=== PATIENT | male | born 1965 | race Hispanic/Latino ===

== ENCOUNTER 2019-01-10 15:24 | Inpatient (IN) | payer SELFPAY ==
[~2019-01-10 15:24] MED LIST: ISOVUE-370 76%-LOCM 1 ML ONE
[2019-01-10 16:00] LABS: #Basophils 0.1 thou/uL (0.0-0.2); #Eosinphils 0.1 thou/uL (0.0-0.7); #Lymphocytes 1.6 thou/uL (1.20-3.40); #Monocytes 1.3 thou/uL (0.11-0.59); #Neutrophils 9.7 thou/uL (1.40-6.50); %Basophils 0.4 % (0.0-1.0); %Eosinophils 0.6 % (0.0-10.0); %Lymphocytes 12.3 % (21.0-51.0); %Monocytes 10.4 % (0.0-10.0); %Neutrophils 76.3 % (42.0-75.0); Hemoglobin 14.7 g/dL (14.0-18.0); Mean Corpuscular HGB CONC 34.3 g/dL (32.0-36.0); Mean Corpuscular Hemoglobin 29.7 pg (27.0-31.0); Mean Corpuscular Volume 86.7 fL (78.0-98.0); Mean Platelet Volume 7.1 fL (7.4-10.4); Platelet Count 292 thou/uL (130-400); RBC Distribution Width 10.9 % (11.5-14.5); Red Blood Cell (RBC) Count 4.94 mill/uL (4.70-6.10); White Blood Cell (WBC) Count 12.7 thou/uL (4.8-10.8)
[2019-01-10 16:02] LABS: Bilirubin Negative (Negative); Blood, Urine Negative (Negative); Clarity Clear (Clear); Glucose, Urine (Dipstick) Greater than 1000 mg/dL (Negative); Leukocyte Negative Leu/uL (Negative); Nitrite Negative (Negative); Protein, Urine (Dipstick) Negative (Neg-Trace); Urobilinogen Normal mg/dL (Less than 2)
[2019-01-10 16:22] LABS: ALT (SGPT) 15 U/L (8-55); AST (SGOT) 11 U/L (5-34); Albumin 4.4 g/dL (3.5-5.0); Alkaline Phosphatase 121 U/L (40-150); Anion Gap 13 mmol/L (10-20); BUN (Urea Nitrogen) 9 mg/dL (8.4-25.7); Bilirubin, Total 0.6 mg/dL (0.2-1.2); CK (CPK) 45 U/L (30-200); Calc. Creatinine Clearance 0 mL/min (70-130); Calcium 9.6 mg/dL (7.8-10.44); Carbon Dioxide 28 mmol/L (22-29); Chloride 95 mmol/L (98-107); Estimated GFR-MDRD Greater than 90; Globulin 3.9 g/dL (2.4-3.5); Glucose 351 mg/dL (70-105); Lipase 35 U/L (8-78); Potassium 3.9 mmol/L (3.5-5.1); Protein, Total 8.3 g/dL (6.0-8.3); Sodium 132 mmol/L (136-145)
[2019-01-10] MEDS ORDERED: Morphine 4 MG/ML VIAL ONE (17:13)
[2019-01-10] MEDS ORDERED: Aspirin Chewable 81 MG TAB ONE (17:14)
[2019-01-10] MEDS ORDERED: Ondansetron PF 4 MG/2 ML Vial ONE ×2 (17:14→19:40)
--- NOTE | 2019-01-10 17:31 | CT ---
CT ANGIOGRAM THORAX WITH CONTRAST: (CTA pulmonary angiogram) DATE: 01/10/2019 HISTORY: 53 year old male with chest pain and dyspnea TECHNIQUE: IV injection of iodinated contrast. Scan acquisition timing attempted to coincide with iodinated contrast bolus reaching maximal density in pulmonary arteries. 3-D MIP reconstructions. FINDINGS: In the right middle lobe abutting the anterior pleural surface, there is a 2.5 x 1.5 x 1.5 cm soft ti ssue density lesion. In the contralateral anterior segment of left upper lobe, abutting the left heart border, there is a similar appearing 2 x 2 x 1.5 center soft tissue density. Both of these have irregular margins. No pleural effusion or pneumothorax. Trachea and major bronchi are patent and clear. No thoracic aortic aneurysm or dissection. No pulmonary thromboembolism. No cardiomegaly or pericardial effusion. No hilar lymphadenopathy. There are several mildly enlarged noncalcified AP window lymph nodes, nonspeci fic. IMPRESSION: 1) bilateral soft tissue density lesions in the lungs, one in the right middle lobe and the other in the left upper lobe. These are favored to represent focal bilateral pneumonia. However, a follow-up CT of the chest is recommended (noncontrast) in one month to rule out the less likely possibility of malignant neoplasm. 2) no pulmonary thromboembolus.
--- NOTE | 2019-01-10 17:35 | RAD ---
RADIOGRAPH CHEST 2 VIEW: DATE: 01/10/2019 TIME: 5:11 PM HISTORY: 53-year-old male with chest pain and dyspnea COMPARISON: 03/04/2005 FINDINGS: Subtle new findings of 2 small focal irregularly-shaped noncalcified nodular densities on the order o f 2 cm in size each, one in the right middle lobe and the other in the anterior segment of left upper lobe. No pleural effusion, pneumothorax, or cardiomegaly. IMPRESSION: 2 pulmonary nodular lesions, one on each side. Pneumonia is favored, but follow-up chest CT is recomm ended in one month to rule out malignant neoplasm.
[2019-01-10] MEDS ORDERED: cefTRIAXone\\ROCEPHIN 2 GM VIAL ONE (18:12)
--- NOTE | 2019-01-10 18:55 | PDOC.FPRHP ---
- History of Present Illness Chief Complaint: R-sided chest pain and SOB History of Present Illness: 53 y/o M with a PMHx of HTN and DM II, presents to the ED with CP with coughing over the right chest and SOB present that started yesterday 01/09. Pt c/o of a dry cough, subjective fever, chills nad night sweats for the past week, and increased fatigues over the past X2 weeks. Pt also c/o diffuse joint and "bone pain," and right leg cramping. Pt had chest pain about X2 years ago, but it did not last like this episode. PT denies any N/V/D/Abd pain. Pt c/o BRAGG that was alleviated with rest. Pt states that X2 days ago he was laying tile and inhaled a lot of tile dust in the wind. 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 ED Course: Given IVF, ASA, Morphine, zofran, azithromycin, and rocephin in the ED. CTA chest, bilateral pulmonary densities, representing pneumonia, vs malignancy , recommend f/u in X1 month. No PE. - Allergies/Adverse Reactions Allergies Allergy/AdvReac Type Severity Reaction Status Date / Time No Known Allergies Allergy Verified 01/10/19 22:04 - Home Medications Medication Instructions Recorded Confirmed Type Atorvastatin Calcium [Lipitor] 10 mg PO HS 01/10/19 01/10/19 History Glucosam/Rachid-Msm1/C/Sergio/Bosw 1 each PO DAILY 01/10/19 01/10/19 History [Osteo Bi-Flex Caplet] Magnesium 400 mg PO DAILY 01/10/19 01/10/19 History metFORMIN HCl 500 mg PO BID-WM 01/10/19 01/10/19 History - History PMHx: DM II, for X6 months, HTN PSHx: none FHx: dad: RODRIGO, at age 80. Mom: Cancer and hepatitis Social: Works as a wood tile installer and does not use PPE/respirator while cutting stone, for X35 years. Denies tobacco or drug use. Quit drinking beer last week, X6 pack a day. - Review of Systems General: reports: fever/chills, night sweats, fatigue Eyes: denies: eye pain, vision changes ENT: denies: nasal congestion, rhinorrhea Respiratory: reports: cough, shortness of breath. denies: congestion Cardiovascular: reports: chest pain. denies: palpitation, edema Gastrointestinal: denies: nausea, vomiting, diarrhea, constipation, abdominal pain Genitourinary: denies: dysuria Skin: denies: rashes, lesions Musculoskeletal: reports: pain, tenderness, arthritis/arthralgias Neurological: reports: weakness. denies: numbness, syncope - Vital signs BP: 157/88 HR: 96 RR: 17 Tmax: 98.7 Pox: 95% on RA Wt: 64.127 kg - Physical Exam Constitutional: NAD, awake, alert and oriented, well developed HEENT: normocephalic and atraumatic, PERRLA, EOMI, conjunctiva clear, no scleral icterus, grossly normal vision, grossly normal hearing, MMM, oropharynx clear -HEENT: Pterygium over medial left eye. Neck: supple, FROM, trachea midline, no LAD, no JVD, no thyromegaly Chest: no-tender to palpation, no lesions Heart: RRR, normal S1/S2, no murmurs/rubs/gallops, pulses present, no edema Lungs: CTAB, no respiratory distress, good air movement, no rales/rhonchi, no wheezing, no retractions Abdomen: soft, non-tender, bowel sounds present, no masses/distention, no hernias Musculoskeletal: normal structure, normal tone, ROM grossly normal Neurological: no focal deficit, CN II-XII intact, normal sensation Skin: no rash/lesions, good turgor, capillary refill <2 seconds, no jaundice Heme/Lymphatic: no unusual bruising or bleeding, no purpura, no petechia Psychiatric: normal mood and affect, good judgment and insight, intact recent and remote memory FMR H&P: Results - Labs Result Diagrams: 01/10/19 15:53 01/10/19 15:53 Lab results: WBC 12.7 thou/uL (4.8-10.8) H 01/10/19 15:53 Hgb 14.7 g/dL (14.0-18.0) 01/10/19 15:53 Hct 42.8 % (42.0-52.0) 01/10/19 15:53 MCV 86.7 fL (78.0-98.0) 01/10/19 15:53 Plt Count 292 thou/uL (130-400) 01/10/19 15:53 Neutrophils % 76.3 % (42.0-75.0) H 01/10/19 15:53 Sodium 132 mmol/L (136-145) L 01/10/19 15:53 Potassium 3.9 mmol/L (3.5-5.1) 01/10/19 15:53 Chloride 95 mmol/L (98-107) L 01/10/19 15:53 Carbon Dioxide 28 mmol/L (22-29) 01/10/19 15:53 BUN 9 mg/dL (8.4-25.7) 01/10/19 15:53 Creatinine 0.84 mg/dL (0.7-1.3) 01/10/19 15:53 Glucose 351 mg/dL (70-105) H 01/10/19 15:53 Lactic Acid 1.2 mmol/L (0.5-2.2) 01/10/19 18:00 Calcium 9.6 mg/dL (7.8-10.44) 01/10/19 15:53 Total Bilirubin 0.6 mg/dL (0.2-1.2) 01/10/19 15:53 AST 11 U/L (5-34) 01/10/19 15:53 ALT 15 U/L (8-55) 01/10/19 15:53 Alkaline Phosphatase 121 U/L (40-150) 01/10/19 15:53 Creatine Kinase 45 U/L (30-200) 01/10/19 15:53 B-Natriuretic Peptide Less than 10.0 pg/mL (0-100) 01/10/19 15:53 Serum Total Protein 8.3 g/dL (6.0-8.3) 01/10/19 15:53 Albumin 4.4 g/dL (3.5-5.0) 01/10/19 15:53 Lipase 35 U/L (8-78) 01/10/19 15:53 Urine Ketones Negative mg/dL (Negative) 01/10/19 15:34 Urine Blood Negative (Negative) 01/10/19 15:34 Urine Nitrite Negative (Negative) 01/10/19 15:34 Ur Leukocyte Esterase Negative Brenda/uL (Negative) 01/10/19 15:34 - Radiology Interpretation CT scan - chest Status: report reviewed by me FMR H&P: A/P - Problem List (1) CAP (community acquired pneumonia) Current Visit: Yes Status: Acute Priority: High Code(s): J18.9 - PNEUMONIA , UNSPECIFIED ORGANISM (2) Sepsis Current Visit: Yes Status: Acute Code(s): A41.9 - SEPSIS, UNSPECIFIED ORGANISM Qualifiers: Sepsis type: sepsis due to unspecified organism - Plan Pt seen and evaluated by Dr. Tinoco who agrees with pt's care plan. 53 y/o male admitted to inpatient for evaluation and treatment of CAP and sepsis. 1. Community Acquired Pneumonia - Clinical and radiographic evidence of pneumonia - Ordered Azithromycin and Rocephin - Radiology recommended f/u chest CT in X1 month for possible malignant process in lungs. Consider workup for silicosis as pt's work hx puts him at high risk, or CA. - Bilateral 2. Sepsis 2/2 CAP - Continue IVF LR @120 ml/hr - Continue antibiotic therapy - Vitals Q4H 3. Hx of Chronic Essential HTN 4. DM II - SSI - accuchecks Disposition/LOS: Pt stable Admitted for evaluation and treatment of CAP and Sepsis. FMR H&P: Upper Level - Pertinent history 53 yo male presents for evaluation of chest pain with coughing and SOB. 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 Patient reports coughing with increased pain and that is why he came to be seen. Please see staff internist office based only note above for further information. General: Male appears stated age, NAD HEENT: Moist mucous membranes CV: Tachycardic rate and regular rhythm, no murmurs Respiratory: CTA-bilaterally Abdomen: Soft, nontender, no distention, Normoactive BS Extremities: Moving all four symmetrically, no edema Neuro: No focal deficits Psych: A&O x3. Responds appropriately. - Plan Date/Time: 01/10/191853 IAkira MD, have evaluated this patient and agree with findings/ plan as outlined by staff internist office based only resident. Pertinent changes/additions are listed here. 1. Sepsis secondary to Bilateral Pneumonia - Concern for malignant vs atypical process - Will treat empiric CAP - O2 supplementation as needed 2. DM2 - Continue metformin - Accuchecks and SSI - Likely will need increase in regimen - Consider evaluating HgbA1C 3. Previous alcohol abuse - Quit 3 weeks ago - ASE initiated PCP: [facility] CODE STATUS: FULL CODE Disposition: Stable, will admit to [facility] for management and treatment.
[2019-01-10] MEDS ORDERED: Azithromycin 500 MG VIAL ONE (19:16)
[2019-01-10] MEDS ORDERED: Dextrose 5% in Water 1,000 ML IV PRN (19:27)
[2019-01-10] MEDS ORDERED: Dextrose 50% Abboject 50 ML SYRINGE SLOW IVP PRN (19:27)
[2019-01-10] MEDS: Azithromycin 500 MG in Sodium Chloride 0.9% 250 ML 250 ML IVPB SCH (20:59)
[2019-01-10] MEDS: Lactated Ringer's 1,000 ML IV SCH (21:25)
[2019-01-10] MEDS: HumaLOG 300 UNITS/3 ML VIAL SC PRN (21:29)
[2019-01-10 21:49] VITALS: BMI 22.1
[2019-01-10] MEDS ORDERED: Acetaminophen 325 MG TAB PO SCH (22:15)
[2019-01-10] MEDS ORDERED: Insulin Regular 300 UNITS/3 ML VIAL SC SCH (22:30)
--- NOTE | 2019-01-10 22:39 | PDOC.EVN ---
Event Note - Event Note Event Note: Date/Time: 01/10/192238 I personally evaluated the patient and discussed the management with Dr. Salazar I agree with the History, Examination, Assessment and Plan documented above with any addition or exceptions noted below- 53 y/o M with h/o HTN, HLD and DM II presents with CP worse with coughing and deep inspiration over the right chest, non-productive cough and SOB present that started yesterday 01/09. Pt c/o subjective fever, chills and night sweats for the past week, and increased fatigue for the past X2 weeks. PT denies any N/V/D/Abd pain. Pt c/o BRAGG that was alleviated with rest. Denies any ill contacts. PMH/PSH/Meds/All reviewed and agree with resident's documentation. BP 130/81 P104 RR24 96%RA Exam repeated by me and agree with resident's findings. Labs: WBC=12.7, H/H=14.7/42.8 , Spp=969, Dr=332, K=3.9, Cl=95, CO2=28, BUN/Cr=9/0.84, Rslp=456. AST/ALT=11/15 , trop<0.010, procal=0.04, CXR- 2 nodular lesions irregular, noncalcified favoring pneumonia, CT angio- no evidence of PE; b/l soft tissue densities favoring focal b/l pneumonia. A/P: 1) B/l pneumonia - Admit to IMCU. Blood cultures drawn. Started on rocephin and zithromax. Will give trial of duoneb if feels better will continue. 2) Type 2 DM with hyperglycemia - IVF and start insulin. 3) HTN- resume home meds
[2019-01-11] MEDS: Lactated Ringer's 1,000 ML IV SCH ×3 (05:06→20:15)
[2019-01-11 05:12] LABS: #Basophils 0.1 thou/uL (0.0-0.2); #Eosinphils 0.1 thou/uL (0.0-0.7); #Lymphocytes 1.5 thou/uL (1.20-3.40); #Monocytes 1.1 thou/uL (0.11-0.59); #Neutrophils 8.4 thou/uL (1.40-6.50); %Basophils 0.5 % (0.0-1.0); %Eosinophils 0.6 % (0.0-10.0); %Lymphocytes 13.8 % (21.0-51.0); %Neutrophils 75.1 % (42.0-75.0); Hemoglobin 13.1 g/dL (14.0-18.0); Mean Corpuscular HGB CONC 33.6 g/dL (32.0-36.0); Mean Corpuscular Hemoglobin 29.4 pg (27.0-31.0); Mean Corpuscular Volume 87.5 fL (78.0-98.0); Mean Platelet Volume 7.2 fL (7.4-10.4); Platelet Count 260 thou/uL (130-400); Red Blood Cell (RBC) Count 4.46 mill/uL (4.70-6.10); White Blood Cell (WBC) Count 11.1 thou/uL (4.8-10.8)
[2019-01-11 05:15] LABS: Hemoglobin A1c 8.3 % (4.0-6.0)
[2019-01-11 05:31] LABS: Anion Gap 10 mmol/L (10-20); BUN (Urea Nitrogen) 6 mg/dL (8.4-25.7); Calc. Creatinine Clearance 115 mL/min (70-130); Calcium 8.8 mg/dL (7.8-10.44); Carbon Dioxide 28 mmol/L (22-29); Chloride 103 mmol/L (98-107); Estimated GFR-MDRD Greater than 90; Glucose 178 mg/dL (70-105); Potassium 3.7 mmol/L (3.5-5.1); Sodium 137 mmol/L (136-145)
[2019-01-11] MEDS: HumaLOG 300 UNITS/3 ML VIAL SC PRN ×2 (06:26→20:13)
[2019-01-11] MEDS ORDERED: [UNRECOGNIZED DRUG - OTHER] PO SCH (09:00)
--- NOTE | 2019-01-11 09:01 | PDOC.FM ---
- Subjective Subjective: pt resting comfortably in bed, reports chest pain is much improved. denies SOB - Objective Vital Signs & Weight: Vital Signs (12 hours) Temp Pulse Resp BP Pulse Ox 01/11/19 08:00 99.9 F H 123/77 01/11/19 04:00 102/67 01/11/19 03:40 98.6 F 01/11/19 00:00 103/56 L 01/10/19 23:46 99.3 F 01/10/19 23:00 64 16 94 L Weight Weight 62.737 kg Most Recent Monitor Data Heart Rate from ECG 91 NIBP 123/77 NIBP BP-Mean 92 Respiration from ECG 18 SpO2 95 I&O: 01/10/19 01/11/19 01/12/19 06:59 06:59 06:59 Intake Total 1602 Output Total 1999 Balance -398 Result Diagrams: 01/11/19 04:48 01/11/19 04:48 Phys Exam - Physical Examination Constitutional: NAD HEENT: moist MMs Neck: full ROM Respiratory: clear to auscultation bilateral Cardiovascular: RRR, no significant murmur Gastrointestinal: non-tender, no distention Musculoskeletal: no edema, pulses present Neurological: moves all 4 limbs Lymphatic: no nodes Psychiatric: normal affect Skin: no rash Dx/Plan (1) DMII (diabetes mellitus, type 2) Status: Acute (2) CAP (community acquired pneumonia) Code(s): J18.9 - PNEUMONIA, UNSPECIFIED ORGANISM Status: Acute (3) Sepsis Code(s): A41.9 - SEPSIS, UNSPECIFIED ORGANISM Status: Acute Qualifiers: Sepsis type: sepsis due to unspecified organism - Plan Plan: Sepsis secondary to Bilateral Pneumonia - Concern for malignant vs atypical process - Will treat empiric CAP, transition to oral abx - vss, no O2 requirement, stable to trfx to floor - pulmonology consulted appreciate recs - repeat CT scan non-con in one month 2. DM2 - Continue metformin - Accuchecks and SSI - Likely will need increase in regimen 3. Previous alcohol abuse - Quit 3 weeks ago - ASE initiated PCP: [facility] CODE STATUS: FULL CODE Disposition: Stable, txfr to floor, transition to oral abx, possible DC tomorrow Addendum - Attending - Attending Attestation Date/Time: 01/11/19 3772 I personally evaluated the patient and discussed the management with Dr. Calderon. I agree with and repeated the History, Examination, Assessment and Plan documented above with any addition or exceptions noted below. Will tx empirically as PNA; TTE per Dr. Monroe; nebs as cough has improved. Xfer out of IMCU today.
[2019-01-11] MEDS: Magnesium Oxide 400 MG TAB PO SCH (09:30)
[2019-01-11] MEDS: metFORMIN 500 MG TAB PO SCH ×2 (09:30→16:54)
--- NOTE | 2019-01-11 13:12 | CON ---
DATE OF CONSULTATION: HISTORY OF PRESENT ILLNESS: Smith Vance is a 53-year-old gentleman without any prior history of TB, pneumonia, or asthma, presented with right-sided chest pain and a cough, but no fever, no chills. X-ray showed bilateral infiltrates. CAT scan showed pulmonary infiltrates with a questionable cavitation in the left lung. This morning, he said he is feeling better. The patient has been relatively healthy. In fact, he has not been in the hospital for many years. PAST MEDICAL HISTORY: Diabetes and high cholesterol. PAST SURGICAL HISTORY: None. CHRONIC MEDICATIONS: 1. Metformin 500 twice a day. 2. Magnesium. 3. Lipitor 10. ALLERGIES: NONE. SOCIAL HISTORY: He does oneil. Drinks six beers regularly. Denies being intoxicated. Denies any aspiration. REVIEW OF SYSTEMS: Negative. PHYSICAL EXAMINATION: VITAL SIGNS: Temperature 99, blood pressure 120/77, saturations are 98% on room air, and respiratory rate 18. CHEST: No wheezing, minimal crackles. CARDIAC: Normal S1 and S2. No gallops. ABDOMEN: No masses. LABORATORY DATA: White count 11,000. Lytes are normal. Blood sugar is 185. IMPRESSION AND PLAN: 1. Bilateral pulmonary infiltrates and nonsmoker. 2. Diabetes. Echo is being ordered to rule out any obvious vegetation. I agree with present antibiotics. Remains afebrile, switch him over to oral antibiotics tomorrow. We will follow. Consultation note, 70 minutes, 50% direct patient care. Job ID: [id number]
[2019-01-11] MEDS ORDERED: cefTRIAXone\\ROCEPHIN 1 GM in Sodium Chloride 0.9% 100 ML IVPB SCH (18:00)
[2019-01-11] MEDS: Azithromycin 500 MG in Sodium Chloride 0.9% 250 ML 250 ML IVPB SCH (20:05)
[2019-01-11] MEDS ORDERED: Atorvastatin Calcium 10 MG TAB PO SCH (21:00)
[2019-01-12] MEDS: HumaLOG 300 UNITS/3 ML VIAL SC PRN (05:26)
[2019-01-12] MEDS: Lactated Ringer's 1,000 ML IV SCH (05:27)
[2019-01-12] MEDS: Magnesium Oxide 400 MG TAB PO SCH (07:57)
[2019-01-12] MEDS: metFORMIN 500 MG TAB PO SCH (07:57)
--- NOTE | 2019-01-12 08:35 | PDOC.FM ---
- Subjective Subjective: pt resting comfortably in bed, reports improved cough, denies SOB/chest pain - Objective Vital Signs & Weight: Vital Signs (12 hours) Temp Pulse Resp BP BP Pulse Ox 01/12/19 07:53 98 F 83 18 106/73 96 01/12/19 04:00 98.6 F 70 16 117/71 117/71 95 Weight Weight 62.737 kg Most Recent Monitor Data Heart Rate from ECG 93 NIBP 128/74 NIBP BP-Mean 92 Respiration from ECG 22 SpO2 95 I&O: 01/11/19 01/12/19 01/13/19 06:59 06:59 06:59 Intake Total 1602 1920 Output Total 1999 Balance -398 1920 Result Diagrams: 01/11/19 04:48 01/11/19 04:48 Phys Exam - Physical Examination Constitutional: NAD HEENT: moist MMs Neck: no JVD Respiratory: clear to auscultation bilateral Cardiovascular: RRR, no significant murmur Gastrointestinal: no distention Musculoskeletal: no edema, pulses present Neurological: moves all 4 limbs Skin: no rash Dx/Plan (1) DMII (diabetes mellitus, type 2) Status: Acute (2) CAP (community acquired pneumonia) Code(s): J18.9 - PNEUMONIA, UNSPECIFIED ORGANISM Status: Acute (3) Sepsis Code(s): A41.9 - SEPSIS, UNSPECIFIED ORGANISM Status: Acute Qualifiers: Sepsis type: sepsis due to unspecified organism - Plan Plan: Sepsis secondary to Bilateral Pneumonia - Concern for malignant vs atypical process - treat empiric CAP, transition to oral abx - vss, no O2 requirement - pulmonology consulted appreciate recs - repeat CT scan non-con in one month DM2 - Continue metformin - Accuchecks and SSI - Likely will need increase in regimen Previous alcohol abuse - Quit 3 weeks ago - dc ase protocol PCP: [facility] CODE STATUS: FULL CODE Disposition:transition to oral abx, possible DC today or tomorrow Addendum - Attending - Attending Attestation Date/Time: 01/12/19 1027 I personally evaluated the patient and discussed the management with Dr. Calderon. I agree with and repeated the History, Examination, Assessment and Plan documented above with any addition or exceptions noted below. Coughing but unremarkable exam and he says he feels great. Denies f/c/n/v/cp, no sob. continue IV AB pending TTE results. He will need f/u with pulm for PFTs following resolution and potentially for reimaging. He also needs a PCP. I have explained this to him and he voices understanding.
[2019-01-12] MEDS ORDERED: Azithromycin 250 MG TAB PO SCH (09:00)
--- NOTE | 2019-01-12 09:53 | PRG ---
DATE OF SERVICE: 01/12/2019 SUBJECTIVE: He is better. His pleuritic chest pain resolved. OBJECTIVE: VITAL SIGNS: Temperature 98, pulse 83, saturations are 98% on room air, and blood pressure 106/73. CHEST: No wheezing, crackles. CARDIAC: Normal S1 and S2. No gallop. ABDOMEN: No mass. IMPRESSION: 1. Bilateral pulmonary nodular infiltrates. 2. Right pleuritic pleural base central cavitation. PLAN: Await echo results. If cultures negative and remains afebrile, may switch over to oral antibiotics, doxycycline for about a week. Follow up with a chest x-ray to make sure the infiltrate is resolved. Job ID: [id number]
[2019-01-12 11:53] VITALS: BP 126/84; TEMP 98.5
--- NOTE | 2019-01-13 03:20 | DIS ---
DATE OF ADMISSION: 01/10/2019 DATE OF DISCHARGE: 01/12/2019 ADMITTING ATTENDING: Bri Tinoco MD CONSULTS: Pulmonology, Fredo Brett Monroe MD. RESIDENT: Gene Calderon DO PROCEDURES PERFORMED: None. IMAGING: Chest x-ray significant for bilateral pulmonary infiltrates. Chest CT significant for bilateral soft tissue density lesions of the lungs, one in the right middle lobe and the other in the left upper lobe. These are favored to represent focal bilateral pneumonia. However, a followup CT of the chest is recommended noncontrast in one month to rule out less likely possibility of malignant neoplasm. Echocardiogram revealed a ventricular ejection fraction visually estimated at 50% to 55%. The rest being normal. No vegetations reported. DISCHARGE MEDICATIONS: 1. Magnesium 400 mg p.o. daily. 2. Glucosamine 1 each p.o. daily. 3. Lipitor 10 mg p.o. at bedtime. 4. Metformin 500 mg p.o. b.i.d. with meals. 5. Proventil 2 puffs inhaled q.6 hours p.r.n. 6. Doxycycline 100 mg p.o. b.i.d. for 7 days. DISCHARGE DIAGNOSIS: Sepsis secondary to bilateral pneumonia. SECONDARY DIAGNOSES: 1. Diabetes mellitus type 2. 2. Previous alcohol abuse. HISTORY OF PRESENT ILLNESS AND HOSPITAL COURSE: Mr. Vance is a 53-year-old male with past medical history significant for hypertension, diabetes mellitus, presented to the emergency department with chest pain and coughing over the right chest and shortness of breath that started the day prior to admission. He reports dry cough, subjective fever, chills, night sweats for the past week, and increased fatigue for the past two weeks with associated with bone pain. During evaluation in the emergency department, he was found to have bilateral pulmonary infiltrates. He was started on azithromycin and Rocephin. IMCU admission necessary per protocol for bilateral pneumonia. The patient did not have oxygen requirement and vital signs remained stable throughout hospitalization, treated with IV antibiotics. Pulmonology was consulted and recommended echocardiogram, which was completed to rule out endocarditis. The patient improved throughout hospital stay, reported pain and cough to be much improved. Denied shortness of breath. Deemed stable for discharge. Important followup being in one month. A CT noncontrast of the chest to be completed along with pulmonary function testing for possible asthma versus COPD from prior dust related exposures. Will be sent home on albuterol inhaler to be used until this time. Recommend not to be exposed to heat for the next 2 weeks. DISCHARGE INSTRUCTIONS: 1. Location: Home. 2. Diet: Diabetic. 3. Activity: As tolerated. 4. Followup: Follow up with new PCP in 7 days and Pulmonology in 3-4 weeks. Job ID: [id number]
== END 2019-01-12 17:06 | disposition home or self-care (01) | DRG 871 ==
LOC: ERS 15:24 → IMCU/EMU 17:45 → T4-A 01-11 16:35
PROVIDERS: ADMIT Family Medicine; ATTEND Family Medicine
DX: A41.9 Sepsis, unspecified organism (principal); J18.9 Pneumonia, unspecified organism; E11.65 Type 2 diabetes mellitus with hyperglycemia; I10 Essential (primary) hypertension; Z79.84 Long term (current) use of oral hypoglycemic drugs; Z79.899 Other long term (current) drug therapy
CPT/HCPCS: 36415; 36416; 71046; 71275; 80048; 80053; 81003; 82550; 83036; 83605; 83690; 83880; 84145; 84484; 85025; 86480; 87040; 93005; 93306; 94640; 96365; 96367; 96375; J0456; J0696; J1815; J2270; J2405; J3490; J7050; J7620; Q9966

== ENCOUNTER 2021-02-16 14:01 | Emergency (ER) | payer OTHER ==
[2021-02-16] MEDS ORDERED: Ketorolac Tromethamine 30 MG/ML VIAL ONE (17:24)
== END 2021-02-16 18:20 | disposition home or self-care (01) ==
LOC: ERS 14:01
DX: S50.02XA Contusion of left elbow, initial encounter (principal); M54.9 Dorsalgia, unspecified; E11.9 Type 2 diabetes mellitus without complications; I10 Essential (primary) hypertension; V49.40XA Driver injured in collision with unspecified motor vehicles in traffic accident, initial encounter; Z79.84 Long term (current) use of oral hypoglycemic drugs; Z79.899 Other long term (current) drug therapy
CPT/HCPCS: 96372; J1885

== ENCOUNTER 2021-06-02 14:28 | Inpatient (IN) | payer OTHER, SELFPAY ==
[~2021-06-02 14:28] MED LIST changes: -ISOVUE-370 76%-LOCM 1 ML ONE; +Iopamidol 370 76% 100 ML VIAL ONE; +Iopamidol 370 76% 50 ML VIAL FS ONE
[2021-06-02] MEDS ORDERED: Heparin 10,000 UNITS/ 10 ML VIAL ONE ×2 (14:37→14:40)
[2021-06-02] MEDS ORDERED: Fentanyl 100 MCG/2 ML VIAL ONE ×3 (14:37→22:20)
[2021-06-02] MEDS ORDERED: Midazolam HCl 2 mg/2 ml Vial ONE (14:37)
[2021-06-02] MEDS ORDERED: Nitroglycerin 100MG/250ML BOT 250 ML ONE (14:38)
[2021-06-02] MEDS ORDERED: Lidocaine 1% (PF) 30 ML VIAL ONE (14:38)
[2021-06-02] MEDS ORDERED: Heparin 25,000 units/D5W 0 ML ONE (14:40)
[2021-06-02 14:52] LABS: #Basophils 0.1 thou/uL (0.0-0.2); #Eosinphils 0.2 thou/uL (0.0-0.7); #Lymphocytes 2.4 thou/uL (1.20-3.40); #Monocytes 1.2 thou/uL (0.11-0.59); #Neutrophils 5.6 thou/uL (1.40-6.50); %Basophils 1.5 % (0.0-1.0); %Eosinophils 1.6 % (0.0-10.0); %Lymphocytes 25.3 % (21.0-51.0); %Monocytes 13.1 % (0.0-10.0); %Neutrophils 58.5 % (42.0-75.0); Hemoglobin 13.6 g/dL (14.0-18.0); Mean Corpuscular HGB CONC 33.6 g/dL (32.0-36.0); Mean Corpuscular Hemoglobin 30.3 pg (27.0-31.0); Mean Corpuscular Volume 90.3 fL (78.0-98.0); Mean Platelet Volume 7.3 fL (7.4-10.4); Platelet Count 294 thou/uL (130-400); RBC Distribution Width 11.2 % (11.5-14.5); Red Blood Cell (RBC) Count 4.48 mill/uL (4.70-6.10); White Blood Cell (WBC) Count 9.5 thou/uL (4.8-10.8)
[2021-06-02 15:07] LABS: Prothrombin Time 13.5 sec (12.0-14.7)
[2021-06-02 15:15] LABS: ALT (SGPT) 18 U/L (8-55); AST (SGOT) 16 U/L (5-34); Alkaline Phosphatase 95 U/L (40-110); Anion Gap 17 mmol/L (10-20); BUN (Urea Nitrogen) 13 mg/dL (8.4-25.7); Bilirubin, Total 0.6 mg/dL (0.2-1.2); CK (CPK) 115 U/L (30-200); Calc. Creatinine Clearance 0 mL/min (70-130); Carbon Dioxide 23 mmol/L (22-29); Chloride 99 mmol/L (98-107); Globulin 3.1 g/dL (2.4-3.5); Glucose 323 mg/dL (70-105); Potassium 3.6 mmol/L (3.5-5.1); Protein, Total 7.1 g/dL (6.0-8.3); Sodium 135 mmol/L (136-145)
[2021-06-02] MEDS ORDERED: Atropine Sulfate 1 mg/10 ml Syringe ONE (15:20)
[2021-06-02] MEDS ORDERED: Ondansetron PF 4 MG/2 ML Vial ONE (15:20)
[2021-06-02] MEDS ORDERED: Clopidogrel Bisulfate 300 MG TAB ONE (15:25)
[2021-06-02 15:31] LABS: CKMB 3.7 ng/mL (0-6.6)
[2021-06-02] MEDS ORDERED: Adenosine 6 MG/2 ML VIAL ONE (15:46)
[2021-06-02] MEDS ORDERED: TICAGRELOR 90 MG TABLET ONE (16:02)
[2021-06-02] MEDS ORDERED: Insulin Regular 300 UNITS/3 ML VIAL ONE (17:00)
[2021-06-02 17:39] LABS: INR-International Normal Ratio 1.1; Prothrombin Time 14.8 sec (12.0-14.7)
[2021-06-02 18:16] LABS: PTT Greater than 250.0 sec (22.9-36.1)
[2021-06-02] MEDS ORDERED: Dextrose 5% in Water 1,000 ML IV PRN (19:30)
[2021-06-02] MEDS ORDERED: Sodium Chloride 0.9% 1,000 ML IV SCH (19:30)
[2021-06-02] MEDS ORDERED: Dextrose 50% Abboject 50 ML SYRINGE IVP PRN (19:30)
[2021-06-02] MEDS: Insulin Regular 300 UNITS/3 ML VIAL SC PRN (20:23)
[2021-06-02] MEDS ORDERED: Fentanyl 100 MCG/2 ML VIAL SLOW IVP PRN (20:50)
[2021-06-02] MEDS ORDERED: Fentanyl 100 MCG/2 ML VIAL SLOW IVP SCH (21:00)
[2021-06-03] MEDS ORDERED: Carvedilol 3.125 MG TAB ONE (00:02)
[2021-06-03] MEDS ORDERED: TICAGRELOR 90 MG TABLET ONE (00:02)
[2021-06-03] MEDS: Carvedilol 3.125 MG TAB PO SCH ×3 (00:07→21:01)
[2021-06-03] MEDS: TICAGRELOR 90 MG TABLET PO SCH ×3 (00:07→21:01)
[2021-06-03 03:29] LABS: #Eosinphils 0.1 thou/uL (0.0-0.7); #Lymphocytes 0.9 thou/uL (1.20-3.40); #Neutrophils 7.4 thou/uL (1.40-6.50); %Basophils 0.4 % (0.0-1.0); %Eosinophils 0.9 % (0.0-10.0); %Lymphocytes 9.5 % (21.0-51.0); %Monocytes 10.2 % (0.0-10.0); Hemoglobin 13.9 g/dL (14.0-18.0); Mean Corpuscular HGB CONC 33.5 g/dL (32.0-36.0); Mean Corpuscular Hemoglobin 30.4 pg (27.0-31.0); Mean Corpuscular Volume 90.9 fL (78.0-98.0); Mean Platelet Volume 7.5 fL (7.4-10.4); Platelet Count 221 thou/uL (130-400); RBC Distribution Width 11.5 % (11.5-14.5); Red Blood Cell (RBC) Count 4.57 mill/uL (4.70-6.10); White Blood Cell (WBC) Count 9.4 thou/uL (4.8-10.8)
[2021-06-03] MEDS ORDERED: Sodium Chloride 0.9% 1,000 ML IV SCH (03:30)
[2021-06-03 03:32] VITALS: BMI 21.8
[2021-06-03 03:55] LABS: ALT (SGPT) 17 U/L (8-55); AST (SGOT) 36 U/L (5-34); Albumin 3.7 g/dL (3.5-5.0); Alkaline Phosphatase 90 U/L (40-110); Anion Gap 14 mmol/L (10-20); BUN (Urea Nitrogen) 9 mg/dL (8.4-25.7); Bilirubin, Total 0.6 mg/dL (0.2-1.2); Calc. Creatinine Clearance 99 mL/min (70-130); Calcium 8.5 mg/dL (7.8-10.44); Carbon Dioxide 21 mmol/L (22-29); Chloride 105 mmol/L (98-107); Globulin 2.8 g/dL (2.4-3.5); Glucose 320 mg/dL (70-105); Potassium 3.7 mmol/L (3.5-5.1); Protein, Total 6.5 g/dL (6.0-8.3); Sodium 136 mmol/L (136-145)
[2021-06-03 04:13] LABS: Troponin I 4.678 ng/mL (< 0.028)
[2021-06-03] MEDS: Insulin Regular 300 UNITS/3 ML VIAL SC PRN ×4 (06:43→21:08)
[2021-06-03] MEDS: Aspirin Chewable 81 MG TAB PO SCH (07:59)
[2021-06-03] MEDS ORDERED: Lisinopril 2.5 MG TAB PO SCH (09:00)
[2021-06-03] MEDS ORDERED: Furosemide 40 MG/4 ML VIAL ONE (09:13)
[2021-06-03] MEDS ORDERED: Furosemide 20 MG/2 ML VIAL SLOW IVP SCH ×2 (09:15→18:00)
[2021-06-03] MEDS ORDERED: Famotidine 20 MG TAB PO SCH (09:30)
[2021-06-03] MEDS ORDERED: Potassium Chloride 20 MEQ TAB PO SCH ×2 (09:30→18:00)
[2021-06-03 10:59] LABS: Cardiac Risk 3.5 (Less than 4.5)
[2021-06-03 11:10] LABS: Critical Call Chem Troponin I RESULT DECREASING; Troponin I 2.877 ng/mL (< 0.028)
[2021-06-03 15:13] LABS: SARS-CoV-2 PCR by NAA Not Detected (NotDetected)
[2021-06-03] MEDS ORDERED: Spironolactone 25 MG TAB PO SCH (18:00)
[2021-06-03] MEDS: Lisinopril 2.5 MG TAB PO SCH (20:58)
[2021-06-03] MEDS: Famotidine 20 MG TAB PO SCH (21:00)
[2021-06-03] MEDS: Rosuvastatin 20 MG TAB PO SCH (21:01)
[2021-06-04 04:18] LABS: Anion Gap 17 mmol/L (10-20); BUN (Urea Nitrogen) 12 mg/dL (8.4-25.7); Calc. Creatinine Clearance 91 mL/min (70-130); Calcium 9.5 mg/dL (7.8-10.44); Carbon Dioxide 24 mmol/L (22-29); Chloride 99 mmol/L (98-107); Glucose 228 mg/dL (70-105); Potassium 3.7 mmol/L (3.5-5.1); Sodium 136 mmol/L (136-145)
[2021-06-04] MEDS: Insulin Regular 300 UNITS/3 ML VIAL SC PRN ×4 (06:26→20:37)
[2021-06-04] MEDS: Aspirin Chewable 81 MG TAB PO SCH (08:22)
[2021-06-04] MEDS: Spironolactone 25 MG TAB PO SCH (08:22)
[2021-06-04] MEDS: Famotidine 20 MG TAB PO SCH ×2 (08:22→20:34)
[2021-06-04] MEDS: Carvedilol 3.125 MG TAB PO SCH ×2 (08:22→20:34)
[2021-06-04] MEDS: Lisinopril 2.5 MG TAB PO SCH ×2 (08:22→20:35)
[2021-06-04] MEDS: Potassium Chloride 20 MEQ TAB PO SCH (08:22)
[2021-06-04] MEDS: TICAGRELOR 90 MG TABLET PO SCH ×2 (08:27→20:36)
[2021-06-04] MEDS: Rosuvastatin 20 MG TAB PO SCH (20:35)
[2021-06-04 20:40] VITALS: BP 113/87
[2021-06-05 04:41] LABS: Anion Gap 14 mmol/L (10-20); BUN (Urea Nitrogen) 14 mg/dL (8.4-25.7); Calc. Creatinine Clearance 82 mL/min (70-130); Calcium 9.3 mg/dL (7.8-10.44); Carbon Dioxide 24 mmol/L (22-29); Chloride 100 mmol/L (98-107); Glucose 258 mg/dL (70-105); Potassium 3.8 mmol/L (3.5-5.1); Sodium 134 mmol/L (136-145)
[2021-06-05] MEDS: Insulin Regular 300 UNITS/3 ML VIAL SC PRN (04:52)
[2021-06-05] MEDS: Famotidine 20 MG TAB PO SCH (09:23)
[2021-06-05] MEDS: Aspirin Chewable 81 MG TAB PO SCH (09:23)
[2021-06-05] MEDS: Potassium Chloride 20 MEQ TAB PO SCH (09:24)
[2021-06-05] MEDS: TICAGRELOR 90 MG TABLET PO SCH (09:25)
[2021-06-05] MEDS: Spironolactone 25 MG TAB PO SCH (09:25)
[2021-06-05] MEDS: Lisinopril 2.5 MG TAB PO SCH (09:25)
[2021-06-05] MEDS: Carvedilol 3.125 MG TAB PO SCH (09:26)
[2021-06-05] MEDS ORDERED: Clopidogrel Bisulfate 300 MG TAB PO SCH (10:30)
[2021-06-05 13:41] VITALS: TEMP 97.9
[2021-06-05] MEDS ORDERED: metFORMIN 500 MG TAB PO SCH (17:00)
[2021-06-06] MEDS ORDERED: metFORMIN 500 MG TAB PO SCH (08:00)
[2021-06-06] MEDS ORDERED: Clopidogrel Bisulfate 75 MG TAB PO SCH (09:00)
== END 2021-06-05 14:15 | disposition home or self-care (01) | DRG 247 ==
LOC: ERS 14:28 → CCL 14:47 → CCU 06-03 03:07
PROVIDERS: ADMIT Internal Medicine Cardiovascular Disease; ATTEND Internal Medicine Cardiovascular Disease
PROC: 027034Z Dilation of Coronary Artery, One Artery with Drug-eluting Intraluminal Device, Percutaneous Approach (ICD-10-PCS; principal; 2021-06-02)
PROC: 4A023N7 Measurement of Cardiac Sampling and Pressure, Left Heart, Percutaneous Approach (ICD-10-PCS; 2021-06-02)
PROC: B2111ZZ Fluoroscopy of Multiple Coronary Arteries using Low Osmolar Contrast (ICD-10-PCS; 2021-06-02)
DX: I21.19 ST elevation (STEMI) myocardial infarction involving other coronary artery of inferior wall (principal); E11.9 Type 2 diabetes mellitus without complications; I25.10 Atherosclerotic heart disease of native coronary artery without angina pectoris; Z20.822 Contact with and (suspected) exposure to COVID-19; I95.9 Hypotension, unspecified; R00.1 Bradycardia, unspecified; E78.00 Pure hypercholesterolemia, unspecified; I50.9 Heart failure, unspecified; I11.0 Hypertensive heart disease with heart failure
CPT/HCPCS: 36415; 36416; 71045; 80048; 80053; 80061; 82550; 82553; 83880; 84484; 85025; 85347; 85610; 85730; 86850; 86900; 86901; 92941; 93005; 93010; 93458; 93798; 94760; 97139; 99152; 99153; C1769; C1874; C9606; J0153; J0461; J1644; J1815; J1940; J2001; J2250; J2405; J3010; J7050; Q9967; U0003; U0005

== ENCOUNTER 2021-08-13 14:08 | Observation (INO) | payer OTHER, SELFPAY ==
[~2021-08-13 14:08] MED LIST changes: -Iopamidol 370 76% 100 ML VIAL ONE; -Iopamidol 370 76% 50 ML VIAL FS ONE; +Iopamidol-370 76% 500 ML 1 ML ONE
[2021-08-13 15:18] LABS: #Eosinphils 0.1 thou/uL (0.0-0.7); #Lymphocytes 1.3 thou/uL (1.20-3.40); #Monocytes 0.8 thou/uL (0.11-0.59); #Neutrophils 5.5 thou/uL (1.40-6.50); %Basophils 0.6 % (0.0-1.0); %Eosinophils 1.7 % (0.0-10.0); %Lymphocytes 16.4 % (21.0-51.0); %Monocytes 10.2 % (0.0-10.0); Hemoglobin 13.7 g/dL (14.0-18.0); Mean Corpuscular HGB CONC 34.1 g/dL (32.0-36.0); Mean Corpuscular Hemoglobin 31.3 pg (27.0-31.0); Mean Corpuscular Volume 91.9 fL (78.0-98.0); Mean Platelet Volume 6.8 fL (7.4-10.4); Platelet Count 274 thou/uL (130-400); RBC Distribution Width 11.5 % (11.5-14.5); Red Blood Cell (RBC) Count 4.37 mill/uL (4.70-6.10); White Blood Cell (WBC) Count 7.7 thou/uL (4.8-10.8)
[2021-08-13] MEDS ORDERED: Nitroglycerin 2% Ointment 1 INCH/1 GM Packet ONE (15:22)
[2021-08-13] MEDS ORDERED: Aspirin Chewable 81 MG TAB ONE (15:22)
[2021-08-13 15:45] LABS: ALT (SGPT) 19 U/L (8-55); AST (SGOT) 15 U/L (5-34); Albumin 4.5 g/dL (3.5-5.0); Alkaline Phosphatase 88 U/L (40-110); Anion Gap 13 mmol/L (10-20); BUN (Urea Nitrogen) 14 mg/dL (8.4-25.7); Bilirubin, Total 0.6 mg/dL (0.2-1.2); Calc. Creatinine Clearance 0 mL/min (70-130); Calcium 9.6 mg/dL (7.8-10.44); Carbon Dioxide 27 mmol/L (22-29); Chloride 99 mmol/L (98-107); Globulin 3.3 g/dL (2.4-3.5); Glucose 253 mg/dL (70-105); Lipase 51 U/L (8-78); Potassium 4.7 mmol/L (3.5-5.1); Protein, Total 7.8 g/dL (6.0-8.3); Sodium 134 mmol/L (136-145)
[2021-08-13] MEDS ORDERED: Senokot S 8.6-50 MG TAB PO PRN (17:49)
[2021-08-13] MEDS ORDERED: Acetaminophen 325 MG TAB PO PRN (17:49)
[2021-08-13] MEDS ORDERED: Ondansetron PF 4 MG/2 ML Vial IVP PRN (17:49)
[2021-08-13] MEDS ORDERED: Bisacodyl 5 MG TAB PO PRN (17:49)
[2021-08-13] MEDS ORDERED: Melatonin 3 MG TAB PO PRN (17:57)
[2021-08-13] MEDS ORDERED: Nitroglycerin 0.4 MG TAB (25 Tab Bottle) SL PRN (17:58)
[2021-08-13] MEDS ORDERED: HumaLOG 300 UNITS/3 ML VIAL SC PRN ×2 (18:37)
[2021-08-13] MEDS ORDERED: Dextrose 50% Abboject 50 ML SYRINGE SLOW IVP PRN (18:37)
[2021-08-13] MEDS ORDERED: Dextrose 5% in Water 1,000 ML IV PRN (18:37)
[2021-08-13 20:11] VITALS: BMI 21.6
[2021-08-13] MEDS ORDERED: Enoxaparin Sodium 40 MG/0.4 ML SYRINGE SC SCH ×2 (20:46→21:30)
[2021-08-13] MEDS ORDERED: Pantoprazole 40 MG VIAL IVP SCH (21:00)
[2021-08-13] MEDS ORDERED: Carvedilol 3.125 MG TAB PO SCH (21:00)
[2021-08-13] MEDS: Lisinopril 2.5 MG TAB PO SCH (21:37)
[2021-08-13 23:56] LABS: SARS-CoV-2 PCR by NAA Not Detected (NotDetected)
[2021-08-14 04:28] LABS: #Eosinphils 0.2 thou/uL (0.0-0.7); #Lymphocytes 1.8 thou/uL (1.20-3.40); #Neutrophils 4.5 thou/uL (1.40-6.50); %Basophils 0.5 % (0.0-1.0); %Eosinophils 2.7 % (0.0-10.0); %Lymphocytes 23.2 % (21.0-51.0); %Monocytes 13.7 % (0.0-10.0); %Neutrophils 59.8 % (42.0-75.0); Hemoglobin 13.1 g/dL (14.0-18.0); Mean Corpuscular HGB CONC 33.8 g/dL (32.0-36.0); Mean Corpuscular Hemoglobin 31.1 pg (27.0-31.0); Mean Corpuscular Volume 91.9 fL (78.0-98.0); Mean Platelet Volume 6.8 fL (7.4-10.4); Platelet Count 248 thou/uL (130-400); RBC Distribution Width 11.4 % (11.5-14.5); Red Blood Cell (RBC) Count 4.23 mill/uL (4.70-6.10); White Blood Cell (WBC) Count 7.5 thou/uL (4.8-10.8)
[2021-08-14 05:00] LABS: Hemoglobin A1c 7.4 % (4.0-6.0)
[2021-08-14 05:02] LABS: ALT (SGPT) 14 U/L (8-55); AST (SGOT) 10 U/L (5-34); Alkaline Phosphatase 84 U/L (40-110); Anion Gap 10 mmol/L (10-20); BUN (Urea Nitrogen) 13 mg/dL (8.4-25.7); Bilirubin, Total 0.5 mg/dL (0.2-1.2); Calc. Creatinine Clearance 84 mL/min (70-130); Calcium 9.2 mg/dL (7.8-10.44); Carbon Dioxide 27 mmol/L (22-29); Cardiac Risk 2.6 (Less than 4.5); Chloride 102 mmol/L (98-107); Cholesterol 115 mg/dl (< 200 Desired); Globulin 3.2 g/dL (2.4-3.5); Glucose 303 mg/dL (70-105); HDL Cholesterol 44 mg/dL (>60 Neg Risk); LDL Cholesterol, Calculated 45 mg/dL; Protein, Total 7.2 g/dL (6.0-8.3); Sodium 135 mmol/L (136-145); Triglycerides 132 mg/dL (Less than 150)
[2021-08-14] MEDS: Lisinopril 2.5 MG TAB PO SCH (07:39)
[2021-08-14] MEDS ORDERED: Carvedilol 3.125 MG TAB PO SCH (08:00)
[2021-08-14] MEDS ORDERED: Enoxaparin Sodium 40 MG/0.4 ML SYRINGE SC SCH (09:00)
[2021-08-14] MEDS ORDERED: Clopidogrel Bisulfate 75 MG TAB PO SCH (09:00)
[2021-08-14] MEDS ORDERED: Rosuvastatin 20 MG TAB PO SCH (09:00)
[2021-08-14] MEDS ORDERED: Aspirin Chewable 81 MG TAB PO SCH (09:00)
[2021-08-14 11:26] VITALS: BP 94/54; TEMP 98
== END 2021-08-14 14:15 | disposition home or self-care (01) ==
LOC: ERS 14:08 → 2SW 17:31
PROVIDERS: ADMIT Internal Medicine; ATTEND Internal Medicine
DX: R07.89 Other chest pain (principal); E11.65 Type 2 diabetes mellitus with hyperglycemia; I10 Essential (primary) hypertension; I25.10 Atherosclerotic heart disease of native coronary artery without angina pectoris; I25.84 Coronary atherosclerosis due to calcified coronary lesion; I25.2 Old myocardial infarction; Z79.02 Long term (current) use of antithrombotics/antiplatelets; Z79.82 Long term (current) use of aspirin; Z79.84 Long term (current) use of oral hypoglycemic drugs; Z79.899 Other long term (current) drug therapy; Z95.5 Presence of coronary angioplasty implant and graft; Z20.822 Contact with and (suspected) exposure to COVID-19
CPT/HCPCS: 36415; 36416; 71045; 71275; 80053; 80061; 83036; 83690; 83880; 84443; 84484; 85025; 85379; 93005; 93017; 94760; 96372; 96374; C9113; G0378; J1650; J1815; Q9967; U0003; U0005

== ENCOUNTER 2022-12-09 04:42 | Observation (INO) | payer OTHER, SELFPAY ==
[2022-12-09] MEDS ORDERED: Aspirin Chewable 81 MG TAB ONE (04:56)
[2022-12-09] MEDS ORDERED: Nitroglycerin 0.4 MG TAB 1 EACH ONE ×2 (04:56→05:13)
[2022-12-09] MEDS ORDERED: Nitroglycerin 2% Ointment 1 INCH/1 GM Packet ONE ×2 (04:56→07:01)
[2022-12-09 05:23] LABS: %Basophils 0.6 % (0.0-1.0); %Eosinophils 0.8 % (0.0-10.0); %Lymphocytes 24.8 % (21.0-51.0); %Monocytes 9.6 % (0.0-10.0); Hemoglobin 15.9 g/dL (14.0-18.0); Mean Corpuscular HGB CONC 36.2 g/dL (32.0-36.0); Mean Corpuscular Hemoglobin 30.1 pg (27.0-31.0); Mean Corpuscular Volume 83.1 fl (78.0-98.0); Mean Platelet Volume 9.4 fL (7.4-10.4); Platelet Count 263 10x3/uL (130-400); RBC Distribution Width 12.1 % (11.5-14.5); Red Blood Cell (RBC) Count 5.28 mill/uL (4.70-6.10); White Blood Cell (WBC) Count 8.9 10x3/uL (4.8-10.8)
[2022-12-09 05:24] LABS: #Basophils 0.1 thou/uL (0.0-0.2); #Eosinphils 0.1 thou/uL (0.0-0.7); #Monocytes 0.9 thou/uL (0.11-0.59); #Neutrophils 5.7 thou/uL (1.40-6.50)
[2022-12-09 07:28] VITALS: BMI 20.9
[2022-12-09] MEDS ORDERED: Glucagon 1 MG/ML KIT IM PRN (08:24)
[2022-12-09] MEDS ORDERED: HumaLOG 300 UNITS/3 ML VIAL SC PRN (08:24)
[2022-12-09] MEDS ORDERED: Dextrose 5% in Water 1,000 ML IV PRN (08:24)
[2022-12-09] MEDS ORDERED: Dextrose 50% Abboject 50 ML SYRINGE SLOW IVP PRN (08:24)
[2022-12-09] MEDS ORDERED: Regadenoson 0.4 MG/5 ML SYRINGE ONE (08:57)
[2022-12-09 09:02] LABS: Anion Gap 17 mmol/L (10-20); BUN (Urea Nitrogen) 5 mg/dL (8.4-25.7); Bilirubin, Total 0.5 mg/dL (0.2-1.2); Calc. Creatinine Clearance 90 mL/min (70-130); Calcium 10.5 mg/dL (7.6-10.4); Carbon Dioxide 26 mmol/L (22-29); Chloride 101 mmol/L (98-107); Estimated GFR 104; Glucose 152 mg/dL (70-105); Potassium 3.6 mmol/L (3.5-5.1); Protein, Total 9.2 g/dL (6.0-8.3); Sodium 140 mmol/L (136-145)
[2022-12-09 09:03] LABS: ALT (SGPT) 21 U/L (8-55); AST (SGOT) 20 U/L (5-34); Albumin 5.2 g/dL (3.5-5.0); Alkaline Phosphatase 101 U/L (40-110)
[2022-12-09 09:30] LABS: Troponin I Less than 0.010 ng/mL (< 0.028)
[2022-12-09 11:56] LABS: Troponin I Less than 0.010 ng/mL (< 0.028)
[2022-12-09 15:40] VITALS: BP 123/78; TEMP 97.4
== END 2022-12-09 17:10 | disposition home or self-care (01) ==
LOC: ERS 04:42 → 2SW 07:20
PROVIDERS: ADMIT Internal Medicine; ATTEND Internal Medicine
DX: E11.9 Type 2 diabetes mellitus without complications (principal); R07.9 Chest pain, unspecified; I25.10 Atherosclerotic heart disease of native coronary artery without angina pectoris; I10 Essential (primary) hypertension; Z79.82 Long term (current) use of aspirin; Z79.02 Long term (current) use of antithrombotics/antiplatelets; Z79.84 Long term (current) use of oral hypoglycemic drugs; Z79.899 Other long term (current) drug therapy
CPT/HCPCS: 36415; 36416; 71045; 78452; 80053; 83880; 84484; 85025; 93005; 93017; A9500; G0378; J1815; J2785

== ENCOUNTER 2023-10-11 10:36 | Emergency (ER) | payer SELFPAY ==
[2023-10-11 10:58] LABS: #Basophils 0.04 10x3/uL (0.0-0.2); %Basophils 0.6 % (0.0-1.0); %Lymphocytes 9.8 % (21.0-51.0); %Monocytes 14.1 % (0.0-10.0); %Neutrophils 72.2 % (42.0-75.0); Hematocrit 42.4 % (42.0-52.0); Hemoglobin 15.1 g/dL (14.0-18.0); Mean Corpuscular HGB CONC 35.6 g/dL (32.0-36.0); Mean Corpuscular Volume 84.1 fL (78.0-98.0); Mean Platelet Volume 9.3 fL (7.4-10.4); Platelet Count 165 10x3/uL (130-400); RBC Distribution Width 12.3 % (11.5-14.5); Red Blood Cell (RBC) Count 5.04 mill/uL (4.70-6.10)
[2023-10-11 11:20] LABS: Glucose 255 mg/dL (70-105); Lipase 41 U/L (8-78)
[2023-10-11 11:22] LABS: ALT (SGPT) 29 U/L (8-55); AST (SGOT) 31 U/L (5-34); Albumin 3.8 g/dL (3.5-5.0); Alkaline Phosphatase 88 U/L (40-110); Anion Gap 15 mmol/L (10-20); BUN (Urea Nitrogen) 11 mg/dL (8.4-25.7); Bilirubin, Total 0.5 mg/dL (0.2-1.2); Calc. Creatinine Clearance 0 mL/min (70-130); Carbon Dioxide 22 mmol/L (22-29); Chloride 100 mmol/L (98-107); Estimated GFR 104; Globulin 3.8 g/dL (2.4-3.5); Glucose 252 mg/dL (70-105); Potassium 3.9 mmol/L (3.5-5.1); Protein, Total 7.6 g/dL (6.0-8.3); Sodium 133 mmol/L (136-145)
[2023-10-11] MEDS ORDERED: Ketorolac Tromethamine 30 MG (1 mL) VIAL ONE (13:12)
[2023-10-11] MEDS ORDERED: Ondansetron ODT 4 MG TAB ONE (13:13)
[2023-10-11 13:52] LABS: Bacteria/HPF None Seen HPF (None Seen); Bilirubin Negative (Negative); Blood, Urine Negative (Negative); CAUTI Indications for Culture Fever or rigors; Clarity Clear (Clear); Glucose, Urine (Dipstick) Greater than 1000 mg/dL (Negative); Ketone, Urine 10 mg/dL (Negative); Leukocyte Negative Leu/uL (Negative); Nitrite Negative (Negative); Protein, Urine (Dipstick) 10 mg/dL (Neg-Trace); RBC/HPF 0-3 HPF (0-3); Specific Gravity, Urine 1.017 (1.002-1.036); Squamous Epithelial 0-3 HPF (0-3); Urobilinogen Normal mg/dL (Less than 2); WBC/HPF 0-3 HPF (0-3)
[2023-10-11 13:57] LABS: Urine Culture Reflex No No
[2023-10-11 13:57] LABS: Troponin I Less than 0.010 ng/mL (< 0.028)
[2023-10-11 14:00] LABS: Influenza A by NAA Not Detected (NotDetected); Influenza B by NAA Not Detected (NotDetected); SARS-CoV-2 NAA Rapid Test Not Detected (NotDetected)
== END 2023-10-11 15:26 | disposition home or self-care (01) ==
LOC: ERS 10:36
DX: B34.9 Viral infection, unspecified (principal); R07.9 Chest pain, unspecified; E11.9 Type 2 diabetes mellitus without complications; I10 Essential (primary) hypertension
CPT/HCPCS: 36415; 71045; 80053; 81001; 83690; 84484; 85025; 93005; 96374; J1885; Q0162

== ENCOUNTER 2024-06-01 12:36 | Observation (INO) | payer SELFPAY ==
[2024-06-01] MEDS ORDERED: Aspirin Chewable 81 MG TAB ONE (13:23)
[2024-06-01 13:35] LABS: #Basophils 0.06 10x3/uL (0.0-0.2); %Basophils 0.8 % (0.0-1.0); %Eosinophils 2.1 % (0.0-10.0); %Lymphocytes 21.9 % (21.0-51.0); %Monocytes 10.6 % (0.0-10.0); %Neutrophils 64.3 % (42.0-75.0); Hematocrit 43.6 % (42.0-52.0); Hemoglobin 15.6 g/dL (14.0-18.0); Mean Corpuscular HGB CONC 35.8 g/dL (32.0-36.0); Mean Corpuscular Hemoglobin 29.9 pg (27.0-31.0); Mean Corpuscular Volume 83.5 fL (78.0-98.0); Mean Platelet Volume 9.6 fL (7.4-10.4); Platelet Count 249 10x3/uL (130-400); RBC Distribution Width 12.2 % (11.5-14.5); Red Blood Cell (RBC) Count 5.22 mill/uL (4.70-6.10)
[2024-06-01 14:00] LABS: ALT (SGPT) 18 U/L (8-55); AST (SGOT) 19 U/L (5-34); Albumin 4.2 g/dL (3.5-5.0); Alkaline Phosphatase 101 U/L (40-110); Anion Gap 11 mmol/L (10-20); BUN (Urea Nitrogen) 11 mg/dL (8.4-25.7); Bilirubin, Total 0.7 mg/dL (0.2-1.2); Calc. Creatinine Clearance 0 mL/min (70-130); Calcium 9.2 mg/dL (7.8-10.44); Carbon Dioxide 30 mmol/L (22-29); Chloride 98 mmol/L (98-107); Estimated GFR 107; Globulin 4.1 g/dL (2.4-3.5); Glucose 240 mg/dL (70-105); Protein, Total 8.3 g/dL (6.0-8.3); Sodium 135 mmol/L (136-145)
[2024-06-01 14:02] LABS: Troponin I Less than 0.010 ng/mL (< 0.028)
[2024-06-01] MEDS ORDERED: Iopamidol-370 76% 500 ML MDV (1 ML CHARGE) ONE (15:36)
[2024-06-01] MEDS ORDERED: Ondansetron PF 4 MG/2 ML Vial IVP PRN (17:05)
[2024-06-01] MEDS ORDERED: Glucagon 1 MG/ML KIT IM PRN (17:23)
[2024-06-01] MEDS ORDERED: Dextrose 50% Abboject 50 ML SYRINGE SLOW IVP PRN (17:23)
[2024-06-01] MEDS ORDERED: Dextrose 5% in Water 1,000 ML IV PRN (17:23)
[2024-06-01] MEDS ORDERED: Nitroglycerin 0.4 MG TAB (25 Tab Bottle) SL PRN (17:27)
[2024-06-01 17:38] VITALS: BMI 21.1
[2024-06-01 18:04] LABS: Troponin I Less than 0.010 ng/mL (< 0.028)
[2024-06-01] MEDS: Carvedilol 3.125 MG TAB PO SCH (20:00)
[2024-06-01] MEDS: Famotidine 20 MG TAB PO SCH (20:01)
[2024-06-01 20:44] LABS: Troponin I Less than 0.010 ng/mL (< 0.028)
[2024-06-01] MEDS: Melatonin 3 MG TAB PO PRN (23:05)
[2024-06-02 05:04] LABS: #Basophils 0.06 10x3/uL (0.0-0.2); %Basophils 0.8 % (0.0-1.0); %Eosinophils 2.7 % (0.0-10.0); %Lymphocytes 28.4 % (21.0-51.0); %Monocytes 12.4 % (0.0-10.0); %Neutrophils 55.4 % (42.0-75.0); Hematocrit 40.5 % (42.0-52.0); Hemoglobin 14.2 g/dL (14.0-18.0); Mean Corpuscular HGB CONC 35.1 g/dL (32.0-36.0); Mean Corpuscular Hemoglobin 29.8 pg (27.0-31.0); Mean Corpuscular Volume 85.1 fL (78.0-98.0); Mean Platelet Volume 10.1 fL (7.4-10.4); Platelet Count 222 10x3/uL (130-400); RBC Distribution Width 12.3 % (11.5-14.5); Red Blood Cell (RBC) Count 4.76 mill/uL (4.70-6.10)
[2024-06-02 05:21] LABS: Hemoglobin A1c 7.9 % (4.0-6.0)
[2024-06-02 05:23] LABS: Anion Gap 10 mmol/L (10-20); BUN (Urea Nitrogen) 13 mg/dL (8.4-25.7); Calc. Creatinine Clearance 93 mL/min (70-130); Calcium 8.7 mg/dL (7.8-10.44); Carbon Dioxide 29 mmol/L (22-29); Chloride 100 mmol/L (98-107); Estimated GFR 105; Glucose 203 mg/dL (70-105); Potassium 3.6 mmol/L (3.5-5.1); Sodium 135 mmol/L (136-145)
[2024-06-02] MEDS: Aspirin Chewable 81 MG TAB PO SCH (08:21)
[2024-06-02] MEDS: Rosuvastatin 20 MG TAB PO SCH (08:21)
[2024-06-02] MEDS: Enoxaparin 40 MG (0.4 mL) SYRINGE SC SCH (08:21)
[2024-06-02] MEDS: Acetaminophen 325 MG TAB PO PRN (11:31)
[2024-06-02] MEDS: Insulin Lispro 100 UNIT/ML 10 ML VIAL SC PRN (11:31)
[2024-06-02] MEDS ORDERED: Milk Of Magnesia 30 ML UDCUP PO PRN (16:14)
[2024-06-02] MEDS: traMADol HCl 50 MG TAB PO PRN (17:08)
[2024-06-03] MEDS ORDERED: Regadenoson 0.4 MG/5 ML SYRINGE ONE (09:17)
[2024-06-03 11:33] VITALS: BP 129/78; TEMP 97.6
== END 2024-06-03 14:00 | disposition home or self-care (01) ==
LOC: ERS 12:36 → OBS 17:18
PROVIDERS: ADMIT Internal Medicine; ATTEND Internal Medicine Critical Care Medicine
DX: R07.89 Other chest pain (principal); R20.0 Anesthesia of skin; R20.2 Paresthesia of skin; H53.8 Other visual disturbances; I10 Essential (primary) hypertension; E11.9 Type 2 diabetes mellitus without complications; E78.5 Hyperlipidemia, unspecified; Z95.5 Presence of coronary angioplasty implant and graft; Z79.84 Long term (current) use of oral hypoglycemic drugs; Z79.02 Long term (current) use of antithrombotics/antiplatelets; Z79.899 Other long term (current) drug therapy
CPT/HCPCS: 36415; 36416; 70496; 71045; 78452; 80048; 80053; 83036; 83880; 84484; 85025; 93005; 93017; 96372; A9502; G0378; J1650; J1815; J2785; Q9967